=== PATIENT | female | born 1995 | race Caucasian/White ===

== ENCOUNTER 2019-01-24 07:39 | Observation (INO) ==
[2019-01-24 10:09] LABS: Amphetamine Screen,Urine Negative ng/mL (Cutoff=1000); Barbiturate Screen,Urine Negative ng/mL (Cutoff=200); Benzodiazepines Screen,Urine Negative ng/mL (Cutoff=200); Cannabinoid Screen,Urine Negative ng/mL (Cutoff = 50); Cocaine Screen,Urine Negative ng/mL (Cutoff= 300); Opiate Screen,Urine Negative ng/mL (Cutoff=300); Phencyclidine Screen,Urine Negative ng/mL (Cutoff=25)
== END 2019-01-24 10:03 | disposition home or self-care (01) ==
LOC: 1NENULAB
PROVIDERS: ADMIT Registered Nurse; ATTEND Registered Nurse

== ENCOUNTER 2019-05-06 09:10 | Inpatient (IN) ==
[2019-05-06] MEDS: miSOPROStoL 25 MCG TABLET VG PRN ×2 (09:07→13:55)
[2019-05-06] MEDS: Ringers Solution, Lactated 1,000 ML IVC SCH ×2 (09:09→20:17)
[2019-05-06 09:10] LABS: Basophils % 0.1 %; Eosinophils # 0.1 K/mcL (0.0-0.6); Eosinophils % 0.4 %; Hematocrit 39.2 % (35.3-44.9); Hemoglobin 13.4 g/dL (11.5-15.4); Immature Granulocytes % 0.7 % (0-4); Mean Corpuscular HGB Conc 34.2 g/dL (31.6-35.5); Mean Corpuscular Hemoglobin 29.1 pg (28.0-33.3); Mean Corpuscular Volume 85.2 fL (83.0-100.0); Mean Platelet Volume 10.8 fL (9.4-12.4); Monocytes # 0.6 K/mcL (0.0-1.3); Monocytes % 4.7 %; Neutrophils # 10.7 K/mcL (1.6-8.9); Platelet Count 235 K/mcL (140-400); Red Cell Distribution Width 14.2 % (11.5-14.5); Segmented Neutrophils % 79.1 %; White Blood Count 13.5 K/mcL (4.3-11.1)
[~2019-05-06 09:10] MED LIST: Azithromycin 500 MG in 0.9 % Sodium Chloride 250 ML IVPB ONE; Famotidine 20 MG/2 ML VIAL IVP PRN; Metoclopramide 10 MG/2 ML VIAL IVP PRN; Naloxone 0.4 MG/ML INJ IVP PRN; Ondansetron 4 MG/2 ML VIAL IVP PRN; Penicillin G Potassium 5,000,000 UNIT in 0.9 % Sodium Chloride Mini Bag 100 ML IVPB ONE
[2019-05-06 09:16] LABS: Amphetamine Screen,Urine Negative ng/mL (Cutoff=1000); Barbiturate Screen,Urine Negative ng/mL (Cutoff=200); Benzodiazepines Screen,Urine Negative ng/mL (Cutoff=200); Cannabinoid Screen,Urine Negative ng/mL (Cutoff = 50); Cocaine Screen,Urine Negative ng/mL (Cutoff= 300); Opiate Screen,Urine Negative ng/mL (Cutoff=300); Phencyclidine Screen,Urine Negative ng/mL (Cutoff=25)
[2019-05-06] MEDS ORDERED: *HR* FentaNYL (PF) 100 MCG/2 ML VIAL EP ONE (11:54)
[2019-05-06] MEDS ORDERED: EPHEDrine 50 MG/ML VIAL IVP PRN (11:54)
[2019-05-06] MEDS: Penicillin G Potassium 2,500,000 UNIT in 0.9 % Sodium Chloride 100 ML IVPB SCH ×3 (13:20→22:36)
[2019-05-06] MEDS: *HR* FentaNYL (PF) 100 MCG/2 ML VIAL IVP PRN ×2 (16:06→20:13)
[2019-05-06] MEDS ORDERED: *HR* FentaNYL (PF) 100 MCG/2 ML VIAL ONE (17:40)
[2019-05-06] MEDS ORDERED: Oxytocin 20 units/ LR 1000 mL 20 UNIT/1,000 ML BAG IVC SCH (19:45)
[2019-05-06] MEDS: Epidural Premix (fent/bupiv) 110 ML EP SCH (22:39)
[2019-05-07] MEDS: Ringers Solution, Lactated 1,000 ML IVC SCH (02:30)
[2019-05-07] MEDS: Penicillin G Potassium 2,500,000 UNIT in 0.9 % Sodium Chloride 100 ML IVPB SCH ×2 (02:31→06:42)
[2019-05-07] MEDS: Epidural Premix (fent/bupiv) 110 ML EP SCH ×2 (02:47→08:13)
[2019-05-07] MEDS ORDERED: Ondansetron 4 MG/2 ML VIAL IVP PRN (10:06)
[2019-05-07] MEDS ORDERED: Rho Immune Globulin 1,500 UNIT SYRINGE IM ONE (10:06)
[2019-05-07] MEDS ORDERED: Metoclopramide 10 MG/2 ML VIAL IVP PRN (10:06)
[2019-05-07] MEDS ORDERED: Naloxone 0.4 MG/ML INJ IVP PRN (10:06)
[2019-05-07] MEDS ORDERED: Sennosides 8.6 MG TABLET PO PRN (10:06)
[2019-05-07] MEDS ORDERED: Simethicone 80 MG TAB.CHEW PO PRN (10:06)
[2019-05-07] MEDS ORDERED: Oxytocin 20 units/ LR 1000 mL 20 UNIT/1,000 ML BAG IVC SCH ×2 (10:06→13:04)
[2019-05-07] MEDS ORDERED: Ibuprofen 600 MG TABLET PO PRN (10:06)
[2019-05-07] MEDS ORDERED: *HR* OxyCODONE/APAP 5/325 TABLET PO PRN (10:06)
[2019-05-07] MEDS ORDERED: Oxytocin 20 units/ LR 1000 mL 20 UNIT/1,000 ML BAG IVC ONE (13:04)
[2019-05-07] MEDS ORDERED: Benzocaine/Menthol 56 GM AEROSOL SPRAY TP PRN (13:04)
[2019-05-07] MEDS ORDERED: Lanolin 7 G OINT...G. TP PRN (13:04)
[2019-05-07] MEDS: Ibuprofen 600 MG TABLET PO PRN ×2 (14:04→20:14)
[2019-05-07] MEDS: Acetaminophen 325 MG TABLET PO PRN ×2 (14:04→20:15)
[2019-05-08 05:24] VITALS: BP 132/76
[2019-05-08] MEDS: Ibuprofen 600 MG TABLET PO PRN (05:28)
[2019-05-08] MEDS: Acetaminophen 325 MG TABLET PO PRN (05:30)
[2019-05-08 06:48] LABS: Basophils % 0.2 %; Eosinophils # 0.2 K/mcL (0.0-0.6); Eosinophils % 1.5 %; Hematocrit 30.4 % (35.3-44.9); Immature Granulocytes % 0.6 % (0-4); Lymphocytes # 2.5 K/mcL (0.6-4.6); Lymphocytes % 15.8 %; Mean Corpuscular HGB Conc 32.2 g/dL (31.6-35.5); Mean Corpuscular Hemoglobin 28.8 pg (28.0-33.3); Mean Corpuscular Volume 89.4 fL (83.0-100.0); Mean Platelet Volume 10.7 fL (9.4-12.4); Monocytes # 0.7 K/mcL (0.0-1.3); Monocytes % 4.4 %; Neutrophils # 12.3 K/mcL (1.6-8.9); Platelet Count 174 K/mcL (140-400); Red Cell Distribution Width 14.5 % (11.5-14.5); Segmented Neutrophils % 77.5 %; White Blood Count 15.8 K/mcL (4.3-11.1)
[2019-05-08 06:49] LABS: Hemoglobin 9.8 g/dL (11.5-15.4)
[2019-05-08] MEDS ORDERED: Prenatal Vit/FA 1 EACH TABLET PO SCH (09:00)
== END 2019-05-08 09:33 | disposition home or self-care (01) | DRG 768 ==
LOC: 1NENULAB → 1NENUOBS 05-07 12:03
PROVIDERS: ADMIT Advanced Practice Midwife; ATTEND Advanced Practice Midwife

== ENCOUNTER → 2022-01-05 18:20 | Observation (INO) ==
[2022-01-05 17:10] LABS: Bilirubin,Urine Negative (Negative); Blood,Urine Negative (Negative); Clarity,Urine Clear (Clear); Color,Urine Light-Yellow (Yellow); Glucose,Urine (UA) Normal (Normal); Ketones,Urine Negative (Negative); Leukocyte Esterase,Urine Negative (Negative); Nitrite,Urine Negative (Negative); Protein,Urine Negative (Neg-Trace); Specific Gravity,Urine 1.011 (1.010-1.025); Urobilinogen,Urine Normal (Normal)
[2022-01-05 19:56] LABS: Candida DNA DETECTED (Not Detect); Gardnerella DNA Not Detected (Not Detect); Trichomonas DNA Not Detected (Not Detect)
== END | disposition home or self-care (01) ==
LOC: 1NENULAB
PROVIDERS: ADMIT Advanced Practice Midwife; ATTEND Advanced Practice Midwife

== ENCOUNTER 2022-01-13 21:31 | Inpatient (IN) ==
[~2022-01-13 21:31] MED LIST changes: +*HR* Nalbuphine 10 MG/ML AMPUL IV PRN; -Azithromycin 500 MG in 0.9 % Sodium Chloride 250 ML IVPB ONE; +Azithromycin 500 MG in 0.9 % Sodium Chloride 250 ML IVPB PRN; -Penicillin G Potassium 5,000,000 UNIT in 0.9 % Sodium Chloride Mini Bag 100 ML IVPB ONE
[2022-01-13] MEDS ORDERED: Oxytocin 30 UNIT/503 ML BAG IVC SCH (21:45)
[2022-01-13] MEDS ORDERED: Ringers Solution, Lactated 1,000 ML IVC SCH (21:45)
[2022-01-13] MEDS ORDERED: *HR* Nalbuphine 10 MG/ML AMPUL IM PRN (21:50)
[2022-01-13 22:50] LABS: Basophils % 0.2 %; Eosinophils # 0.1 K/mcL (0.0-0.6); Eosinophils % 0.5 %; Hematocrit 39.8 % (35.3-44.9); Immature Granulocytes % 0.7 % (0-4); Lymphocytes # 3.2 K/mcL (0.6-4.6); Lymphocytes % 18.9 %; Mean Corpuscular HGB Conc 32.7 g/dL (31.6-35.5); Mean Corpuscular Volume 85.8 fL (83.0-100.0); Mean Platelet Volume 10.7 fL (9.4-12.4); Monocytes # 0.7 K/mcL (0.0-1.3); Monocytes % 4.1 %; Neutrophils # 12.8 K/mcL (1.6-8.9); Platelet Count 191 K/mcL (140-400); Red Blood Count 4.64 M/mcL (3.82-4.97); Red Cell Distribution Width 13.9 % (11.5-14.5); Segmented Neutrophils % 75.6 %; White Blood Count 16.9 K/mcL (4.3-11.1)
[2022-01-13] MEDS ORDERED: EPHEDrine sulfate 50 MG/10 ML VIAL IVP PRN (23:07)
[2022-01-13] MEDS ORDERED: Ropivacaine/PF 0.2% 20 ML VIAL EP ONE (23:07)
[2022-01-13] MEDS ORDERED: *HR* FentaNYL (PF) 100 MCG/2 ML VIAL EP ONE (23:07)
[2022-01-13] MEDS ORDERED: Epidural Premix (fent/bupiv) 110 ML EP SCH (23:15)
[2022-01-14] MEDS: Ibuprofen 600 MG TABLET PO SCH ×3 (05:50→17:51)
[2022-01-14] MEDS ORDERED: Lanolin 7 G OINT...G. TP PRN (06:22)
[2022-01-14] MEDS ORDERED: OXYTOCIN/RINGERS LACTATE 10 UNIT/166.6 ML BAG IVC ONE (06:22)
[2022-01-14] MEDS ORDERED: Benzocaine/Menthol 56 GM AEROSOL SPRAY TP PRN (06:22)
[2022-01-14] MEDS ORDERED: Measles/Mumps/Rubella Vacc 0.5 ML VIAL SQ PRN (06:22)
[2022-01-14] MEDS ORDERED: Oxytocin 30 UNIT/503 ML BAG IVC SCH (06:22)
[2022-01-14] MEDS ORDERED: Ondansetron ODT 4 MG TAB.RAPDIS SL PRN (06:22)
[2022-01-14] MEDS ORDERED: Prenatal Vit/FA 1 EACH TABLET PO SCH (09:00)
[2022-01-14] MEDS ORDERED: Fluconazole 150 MG TABLET PO ONE (09:00)
[2022-01-14] MEDS: Acetaminophen 325 MG TABLET PO SCH ×2 (12:20→17:51)
[2022-01-14 19:30] VITALS: BP 115/72; PULSE 90; TEMP 98; O2SAT 98
== END 2022-01-15 02:23 | disposition home or self-care (01) | DRG 807 ==
LOC: 1NENULAB → 1NENUOBS 01-14 04:49
PROVIDERS: ADMIT Advanced Practice Midwife; ATTEND Advanced Practice Midwife